=== PATIENT | female | born 1985 | race African-American/Black ===

== ENCOUNTER 2017-05-05 18:59 | Emergency (ER) | payer OTHER ==
[~2017-05-05] VITALS: Ht 165.1 cm; Wt 113.4 kg
--- NOTE | 2017-05-05 19:27 | Emergency Room Report ---
History of Present Illness General Chief Complaint: Upper Extremity Injury Source: Patient Present Illness HPI 31 yo female patient presents to ER complaining of right hand and wrist pain since yesterday. 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 Reports seen at urgent care last night, diagnosed with wrist sprain. Reports no imaging done at that time. Reports instructed to report to ER for paperwork to be completed for workman's comp. Denies loss of ROM. Denies taking medication for pain symptoms. Reports wearing wrist splint since that time. Denies fever, chest pain, SOB. Reports right hand dominant. Allergies: Coded Allergies: No Known Allergies (Unverified , 05/05/17) Patient History Past Medical History: see triage record Last Menstrual Period: 04/09/17 Reviewed Nursing Documentation: PMH: Agreed; PSxH: Agreed Nursing Documentation-PMH Past Medical History: No Stated History Review of Systems All Other Systems: negative except mentioned in HPI Physical Exam Vital Signs Date Time Temp Pulse Resp B/P (MAP) Pulse Ox O2 Delivery O2 Flow Rate FiO2 05/05/17 19:06 98.0 82 18 153/87 100 Room Air 98.1 Sp02 EP Interpretation: reviewed, normal General Appearance: well appearing, no apparent distress, alert, GCS 15, non- toxic Head: normocephalic, atraumatic Eyes: bilateral eye normal inspection, bilateral eye PERRL ENT: hearing grossly normal, normal pharynx, no angioedema, normal voice, uvula midline, moist mucus membranes Neck: full range of motion Respiratory: lungs clear, normal breath sounds, no rhonchi, no respiratory distress, no accessory muscle use, no wheezing, speaking full sentences Cardiovascular #1: regular rate, rhythm, no edema Musculoskeletal: back normal, digits/nails normal, gait/station normal, normal range of motion - with flexion and extension, able to make a fist, non-tender, no calf tenderness, swelling - mild swelling of dorsum of right hand, other - NVI, no ecchymosis, no erythema Neurologic: alert, oriented x3, responsive, motor strength/tone normal, sensory intact Psychiatric: mood/affect normal Skin: no rash Lymphatic: no adenopathy Medical Decision Making PA Attestation Dr. Junior is my supervising Physician whom patient management has been discussed with. Diagnostic Impression: Primary Impression: Hand pain ER Course Pt. presents to the ED c/o hand and wrist pain. Ddx considered but are not limited to fracture, sprain, strain, contusion, dislocation. PE mild swelling on dorsum of hand, no TTP, full ROM of hand and wrist, no deformity noted. Low suspicion for fracture or dislocation. Will order x-ray to rule out acute disease. Vital signs: are WNL, pt. is afebrile Ordered X-ray and pain medication. ER COURSE An X-ray of the right hand was ordered, results show no acute fracture or dislocation, per the official reading from [facility]. Instructed patient to continue to wear splint provided by previous provider. Instructed on RICE method. Work note provided. May return to work with modifications of right hand. Instructed patient to followup with primary care provider for further treatment and clearance to return to work. DISCHARGE: -Rx provided for Tylenol for pain symptoms. At this time pt. is stable for d/c to home. Patient is resting comfortably, in no acute distress, nontoxic appearing, talking without difficulty. Will provide printed patient care instructions, and any necessary prescriptions. Patient instructed to follow with primary care provider in 3 - 5 days and to request further orthopedic follow-up. Care plan and follow up instructions have been discussed with the patient prior to discharge. Patient instructed on RICE method: rest, ice, compression, elevation. Patient instructed to WBAT. Take medications as directed. Patient questions asked and answered. Patient reports understanding and agreement to treatment plan. ER precautions given, patient instructed to return to ER immediately for any new or worsening of symptoms. Other X-Ray Diagnostic Results Other X-Ray Diagnostic Results : # of Views/Limited Vs Complete: 3 View Indication: Pain EP Interpretation: Yes PA Xray: Interpretation reviewed, by supervising MD, and agrees with findings. Interpretation: no dislocation, no soft tissue swelling, no fractures, other - Oblique view shows questionable nondisplaced fracture at the distal radius, versus artifact or chronic changes. Please correlate clinically. No acute dislocation. Impression: No acute disease TRU Scribe Text Ramakrishna Dutta PA-C Last Vital Signs Date Time Temp Pulse Resp B/P (MAP) Pulse Ox O2 Delivery O2 Flow Rate FiO2 05/05/17 19:06 98.0 82 18 153/87 100 Room Air 98.1 Disposition: HOME, SELF-CARE Condition: Stable Scripts Acetaminophen* (TYLENOL EXTRA STRENGTH*) 500 Mg Tablet 500 MG ORAL Q8H PRN for Prn Headache/Temp > 101, #30 TAB 0 Refills Prov: French Dutta 05/05/17 Patient Instructions: Hand Contusion, [id number], Wrist Sprain Additional Instructions: Patient instructed to follow up with primary care provider and discuss further referral to orthopedics. Patient instructed on RICE method: rest, ice, compression, elevation. Patient instructed to WBAT. Take medications as directed. Patient questions asked and answered. ER precautions given, patient instructed to return to ER immediately for any new or worsening of symptoms. French Dutta May 05, 2017 19:27
[2017-05-05 19:30] VITALS: BP 135/66
[2017-05-05] MEDS ORDERED: Acetaminophen 500mg (ES) tab ORAL ONE (19:30)
[2017-05-05] MEDS ORDERED: TYLENOL EXTRA500 MG ORAL (20:01)
[2017-05-05 20:50] VITALS: BP 153/87
--- NOTE | 2017-05-06 10:28 | Diagnostic Imaging Report ---
Indication: Right hand pain Technique: Right hand 3 views Comparison: None Findings: There is no radiographically evident displaced fracture or dislocation. Mild soft tissue swelling is present. 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 Impression: No radiographically evident displaced fracture or dislocation. Soft tissue swelling. Follow-up recommended as indicated.
== END 2017-05-05 20:50 | disposition home or self-care (01) ==
LOC: EMR 20:01
DX: M79.641 Pain in right hand (principal); M25.531 Pain in right wrist
CPT/HCPCS: 99283